=== PATIENT | male | born 1970 | race Caucasian/White ===

== ENCOUNTER 2017-06-03 10:27 | Emergency (ER) | payer BC ==
[~2017-06-03] VITALS: Ht 175.3 cm; Wt 88.5 kg
[2017-06-03 10:33] VITALS: BP_SYST 126
--- NOTE | 2017-06-03 10:38 | NUR ---
Ambulatory to bed 1
--- NOTE | 2017-06-03 10:45 | NUR ---
Urine collected and sent to lab.
--- NOTE | 2017-06-03 10:50 | NUR ---
KIMBER Norris at bedside examining patient.
--- NOTE | 2017-06-03 10:52 | NUR ---
Pt presents to ER c/o burning pain x 3 weeks; pt states that pain is 7/10 & has increased over 3 weeks starting in his groin but is now radiating to suprapubic area. Pt denies dysuria or hematuria. Pt denies constipation. Pt reports history of kidney stones and acid reflux. Pt reports having surgery to remove 3rd testicle as a child and cholecystectomy. Pt is AOX4, no acute distress noted, NKDA.
[2017-06-03 10:55] LABS: BILIRUBIN,URINE NEGATIVE (NEGATIVE); CLARITY/URINE CLEAR (CLEAR); COLOR,URINE YELLOW (YELLOW); GLUCOSE,URINE NEGATIVE (NEGATIVE); KETONES,URINE NEGATIVE (NEGATIVE); LEUKOCYTE ESTERASE ,URINE NEGATIVE (NEGATIVE); NITRITE, URINE NEGATIVE (NEGATIVE); PH,URINE 5.5 (5.0-8.0); PROTEIN URINE NEGATIVE (NEGATIVE); UROBILINOGEN,URINE 0.2 (0.2-1.0)
[2017-06-03 11:03] LABS: BLOOD, URINE TRACE (NEGATIVE)
[2017-06-03 11:15] LABS: BACTERIA,URINE FEW /HPF (None Seen); RBC,URINE 0-3 /HPF (0-3); WBC,URINE NONE SEEN /HPF (0-3)
--- NOTE | 2017-06-03 11:20 | NUR ---
Patient transported to radiology via ambulatory, accompanied by rad staff.
--- NOTE | 2017-06-03 11:40 | NUR ---
Returned from radiology, back to [facility].
--- NOTE | 2017-06-03 12:24 | NUR ---
Patient transported to radiology via gurney, accompanied by rad staff.
--- NOTE | 2017-06-03 12:35 | NUR ---
Returned from radiology, back to [facility].
[2017-06-03] MEDS ORDERED: cefTRIAXone 250 MG VIAL IM ONE (13:15)
[2017-06-03] MEDS ORDERED: LIDOCAINE 1%, 20 ML MDV 20 ML ONE (13:17)
[2017-06-03 13:25] VITALS: BP_SYST 121
--- NOTE | 2017-06-03 13:25 | NUR ---
Patient given written and verbal discharge instructions and verbalizes understanding. ER MD discussed with patient the results and treatment provided. Patient in stable condition. ID arm band removed. Rx of doxycycline given. Patient educated on pain management and to follow up with PMD. Pain Scale 0/10. Opportunity for questions provided and answered.
== END 2017-06-03 13:25 | disposition home or self-care (01) ==
LOC: SED 10:27
DX: N45.1 Epididymitis (principal); Z87.442 Personal history of urinary calculi
CPT/HCPCS: 74176; 76870; 81000; 96372; 99285; J0696; J2001

== ENCOUNTER 2019-06-13 14:13 | Emergency (ER) | payer BC ==
[~2019-06-13] VITALS: Ht 172.7 cm; Wt 86.6 kg
[2019-06-13 14:25] VITALS: BP_SYST 128
[2019-06-13] MEDS ORDERED: KETOROLAC TROMETHAMINE 60 MG/2 ML VIAL IM ONE (16:00)
--- NOTE | 2019-06-13 16:10 | NUR ---
PATIENT PRESENTS TO THE ER WITH HX OF TRAUMA TO RIGHT SHOULDER HE REACHED ABOVE HIS HEAD TO GRASP AN ITEM; PAIN RADIATES TO RIGHT LATERAL NECK AREA; NO OTHER TRAUMA, NO OTHER REMARKABLE S/S; FULL DISTAL N/C/R IS INTACT
--- NOTE | 2019-06-13 16:11 | NUR ---
PATIENT TO ER W2 AT 1545 AND EVALUATED BY ERMD AT 1430
--- NOTE | 2019-06-13 16:51 | NUR ---
PATIENT NOT FOUND IN ER NOR SURROUNDING AREA Addendum: 06/17/19 at 0723 by MED[facility] SLING WAS APPIED AND PATIENT ELOPED PRIOR TO ACI OR PRESCRIPTION; ELOPED
[2019-06-17 07:21] VITALS: BP_SYST 128
== END 2019-06-13 19:21 | disposition still patient (30) ==
LOC: SED 14:13
DX: S43.401A Unspecified sprain of right shoulder joint, initial encounter (principal); X50.9XXA Other and unspecified overexertion or strenuous movements or postures, initial encounter; Y93.89 Activity, other specified; Y92.89 Other specified places as the place of occurrence of the external cause; Y99.8 Other external cause status
CPT/HCPCS: 73030; 99283

== ENCOUNTER 2022-03-15 08:36 | Emergency (ER) | payer BC ==
[~2022-03-15] VITALS: Ht 172.7 cm; Wt 89.8 kg
[2022-03-15 08:47] VITALS: BP_SYST 150
[2022-03-15] MEDS ORDERED: IBUPROFEN 600 MG TABLET PO ONE (09:30)
--- NOTE | 2022-03-15 09:50 | NUR ---
Patient to ER bed 2 to gown for evaluation. Side rails up. Report given to Demarcus.
--- NOTE | 2022-03-15 09:52 | NUR ---
Patient has been seen by MD and given pain meds prior to discharge. Patient has had teaching completed. Awaiting for discharge instructions.
--- NOTE | 2022-03-15 09:55 | NUR ---
Patient given written and verbal discharge instructions and verbalizes understanding. ER MD discussed with patient the results and treatment provided. Patient in stable condition. ID arm band removed. No RX given. Patient educated on pain management and to follow up with PMD. Pain Scale 5/10. Opportunity for questions provided and answered. Medication side effect fact sheet provided.
[2022-03-15] MEDS ORDERED: NAPR-1172 PO (10:00)
--- NOTE | 2022-03-15 10:15 | NUR ---
Patient seen by MD and medicine given. Patient indicated that he will go home and follow MD's instruction for Plantar Faciatis.
--- NOTE | 2022-03-15 10:17 | NUR ---
Patient given written and verbal discharge instructions and verbalizes understanding. ER MD discussed with patient the results and treatment provided. Patient in stable condition. ID arm band removed. Rx of ibuprofen given. Patient educated on pain management and to follow up with PMD. Pain Scale 5/10. Opportunity for questions provided and answered. Medication side effect fact sheet provided.
== END 2022-03-15 10:12 | disposition home or self-care (01) ==
LOC: SED 08:36
DX: M79.672 Pain in left foot (principal); I10 Essential (primary) hypertension; Z79.899 Other long term (current) drug therapy
CPT/HCPCS: 99283